=== PATIENT | female | born 1945 | race Caucasian/White ===

== ENCOUNTER 2021-03-22 10:46 | Outpatient (CLI) | payer MEDICARE | END 2021-03-22 10:47 | disposition home or self-care (01) | LOC: CSHMAMMO 10:46 | PROVIDERS: ATTEND Obstetrics & Gynecology | DX: Z12.31 Encounter for screening mammogram for malignant neoplasm of breast (principal) | CPT/HCPCS: 77063; 77067 ==

== ENCOUNTER 2022-12-06 09:38 | Emergency (ER) | payer OTHER, MEDICARE ==
[2022-12-06] MEDS ORDERED: Ketorolac Tromethamine 30 MG/ML VIAL ONE (10:42)
== END 2022-12-06 12:12 | disposition home or self-care (01) ==
LOC: CSHERS 09:38
DX: S42.032A Displaced fracture of lateral end of left clavicle, initial encounter for closed fracture (principal); E78.5 Hyperlipidemia, unspecified; W01.10XA Fall on same level from slipping, tripping and stumbling with subsequent striking against unspecified object, initial encounter
CPT/HCPCS: 23505; 70450; 71045; 96372; J1885